=== PATIENT | female | born 1975 | race Caucasian/White ===

== ENCOUNTER 2020-05-23 22:06 | Emergency (ER) | payer OTHER ==
[~2020-05-23] VITALS: Ht 167.6 cm; Wt 79.3 kg
[2020-05-23 22:10] VITALS: BP 155/95
--- NOTE | 2020-05-23 22:11 | PHYS DOC ---
Past History Past Medical History: Anxiety Adult General HPI HPI Patient is a 44-year-old female here for anxiety. This is a chronic problem, has been on Lexapro on and off since 2011. Recently restarted this due to increased social stressors and increased frequency of panic attacks. 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 Patient reports having increased frequency of panic attacks past 48 hours that have been disturbing her activities of daily living and ability to sleep. She has no panic attack at present but is here to discuss other issues for as needed use for acute anxiety. She states she has had Xanax prescription in the past for as needed use in discussing prescription for this today Review of Systems Review of Systems Fourteen body systems of review of systems have been reviewed. See HPI for pertinent positives and negative responses, other almanza all other systems are negative, non-pertinent or non-contributory Physical Exam Physical Exam Constitutional: Well developed, well nourished, no acute distress, non-toxic appearance. HENT: Normocephalic, atraumatic, bilateral external ears normal, oropharynx moist, no oral exudates, nose normal. Eyes: PERRLA, EOMI, conjunctiva normal, no discharge. Neck: Normal range of motion, no tenderness, supple, no stridor. Cardiovascular: Heart rate regular per monitor Lungs & Thorax: No respiratory distress or accessory muscle use, bilateral chest rise Abdomen: Abdomen soft, non-tender, bowel sounds present in all quadrants, no guarding or rebound, nonacute abdomen. Skin: Warm, dry, no erythema, no rash. Back: No tenderness, no CVA tenderness. Extremities: No tenderness, no cyanosis, no clubbing, ROM intact, no edema. Neurologic: Alert and oriented X 3, grossly normal motor & sensory function, no focal deficits noted. Psychologic: Affect normal, judgement normal, mood normal. Current Patient Data Vital Signs Vital Signs Date Time Temp Pulse Resp B/P (MAP) Pulse Ox O2 Delivery O2 Flow Rate FiO2 05/23/20 22:10 98.1 96 16 155/95 (115) 99 Room Air EKG EKG [] Radiology/Procedures Radiology/Procedures [] Heart Score Risk Factors: Risk Factors: DM, Current or recent (<one month) smoker, HTN, HLP, family history of CAD, obesity. Risk Scores: Risk Factors: DM, Current or recent (<one month) smoker, HTN, HLP, family history of CAD, obesity. Course & Med Decision Making Course & Med Decision Making Discussed with patient nature of anxiety and need to be on SSRI. I advised against prescribing Xanax or other benzodiazepine use for as needed use, she needs to discuss this utility with her primary care physician. I discussed utility of utilizing Vistaril as needed for panic attacks. I stated goal standard of treatment is outpatient therapy in conjunction with SSRI. Patient asymptomatic and hemodynamically stable, is anxious but has no other symptoms reported today. Strict return precautions were also discussed at length with good understanding by patient. Patient voiced understanding and agreement with the plan. Dragon Disclaimer Dragon Disclaimer This electronic medical record was generated, in whole or in part, using a voice recognition dictation system. Departure Departure: Impression: Primary Impression: Anxiety Disposition: 01 DC HOME SELF CARE/HOMELESS Condition: STABLE Referrals: DEJA INMAN MD (PCP) Patient Instructions: Anxiety and Panic Attacks Additional Instructions: You were seen in the ED for evaluation of anxiety. Anxiety is a serious medical condition with unfortunate effects on daily living. You should utilize the Behavior Health resources for further management of your symptoms. As disc ussed, please use the prescribed Vistaril medication for as needed use during acute anxiety/panic attacks. Please discuss utility of this going forward with your primary care physician until your SSRI which is gold standard for your condition takes full effect. If any concerning signs or symptoms present prior to outpatient follow-up please do not hesitate to come back for repeat evaluation Scripts Hydroxyzine Pamoate (VISTARIL) 50 Mg Capsule 1 CAP PO TID for anxiety, #30 CAP 2 Refills Prov: KALI MONTEZ DO 05/23/20 KALI MONTEZ DO May 23, 2020 22:11
[2020-05-23] MEDS ORDERED: HYDR50CA PO (22:50)
[2020-05-23] MEDS ORDERED: hydrOXYzine HCL 25 MG TABLET ONE ×2 (22:58→23:03)
[2020-05-23] MEDS ORDERED: hydrOXYzine PAMOATE 25 MG CAPSULE PO PRN (23:00)
[2020-05-24] MEDS ORDERED: LORA-254 PO (02:52)
== END 2020-05-23 23:06 | disposition home or self-care (01) ==
LOC: ER 22:06
DX: F41.9 Anxiety disorder, unspecified (principal)
CPT/HCPCS: 99284; Q0177

== ENCOUNTER 2020-05-24 01:55 | Emergency (ER) | payer OTHER ==
[~2020-05-24] VITALS: Ht 167.6 cm; Wt 79.3 kg
[~2020-05-24 01:55] MED LIST: HYDR50CA PO
--- NOTE | 2020-05-24 02:03 | PHYS DOC ---
Past History Past Medical History: Anxiety Past Surgical History: No Surgical History Alcohol Use: None Adult General HPI HPI Patient is a 44-year-old female who was recently discharged from our facility less than 3 hours ago for anxiety. She has longstanding history of anxiety and increased frequency of panic attacks. She has been on SSRI on and off since 2011. Recently restarted this medication due to increased social stress. Patient has outpatient PCP follow-up this upcoming Monday to discuss ongoing swan ic attacks and inability to perform activities of daily living. She presented earlier this evening requesting Xanax for as needed anxiety, this request was denied and in turn patient was given Vistaril prescription. Patient reportedly took x1 25 mg p.o. Vistaril and reported worsened anxiety, flushing, and subsequently started having a panic attack prompting her to come back for repeat evaluation and request for Xanax Review of Systems Review of Systems Fourteen body systems of review of systems have been reviewed. See HPI for pertinent positives and negative responses, other almanza all other systems are negative, non-pertinent or non-contributory Allergies Allergies Allergies Coded Allergies Type Severity Reaction Last Updated Verified No Known Drug Allergies 05/23/20 No Physical Exam Physical Exam Constitutional: Well developed, well nourished, no acute distress, non-toxic appearance. HENT: Normocephalic, atraumatic, bilateral external ears normal, oropharynx moist, no oral exudates, nose normal. Eyes: PERRLA, EOMI, conjunctiva normal, no discharge. Neck: Normal range of motion, no tenderness, supple, no stridor. Cardiovascular: Heart rate regular per monitor Lungs & Thorax: No respiratory distress or accessory muscle use, bilateral chest rise Abdomen: Abdomen soft, non-tender, bowel sounds present in all quadrants, no guarding or rebound, nonacute abdomen. Skin: Warm, dry, no erythema, no rash. Back: No tenderness, no CVA tenderness. Extremities: No tenderness, no cyanosis, no clubbing, ROM intact, no edema. Neurologic: Alert and oriented X 3, grossly normal motor & sensory function, no focal deficits noted. Psychologic: Affect normal, judgement normal, mood normal. EKG EKG [] Radiology/Procedures Radiology/Procedures [] Heart Score HEART Score for Chest Pain: HEART Score for Chest Pain Response (Comments) Value History Slighlty/Non-Suspicious 0 Age < 45 0 Risk Factors 1 or 2 Risk Factors 1 Total 1 Risk Factors: Risk Factors: DM, Current or recent (<one month) smoker, HTN, HLP, family history of CAD, obesity. Risk Scores: Risk Factors: DM, Current or recent (<one month) smoker, HTN, HLP, family history of CAD, obesity. Course & Med Decision Making Course & Med Decision Making Denied patient's request for Xanax at this visit Patient given 1 mg p.o. Ativan with significant relief in symptomology, patient reports "I feel much better". Was found sleeping upon repeat examination in no acute distress, stated " this is the first sleep I have had since May 08 when my panic attacks really started worsening" Joint decision to discharge home with extremely limited prescription for Ativan for as needed use for acute anxiety/panic attacks. I educated patient on risks and benefits of excepting benzodiazepine medication. I advised her against long-term use and stressed need to discuss with her primary care physician alternative ways for addressing her anxiety in outpatient setting. Strict return precautions were discussed with good understanding by patient, all questions and concerns addressed prior to your departure in improved condition Dragon Disclaimer Dragon Disclaimer This electronic medical record was generated, in whole or in part, using a voice recognition dictation system. Departure Departure: Impression: Primary Impression: Anxiety Disposition: 01 DC HOME SELF CARE/HOMELESS Condition: IMPROVED Referrals: DEJA INMAN MD (PCP) Additional Instructions: You were seen in the ED for evaluation of anxiety. Anxiety is a serious medical condition with unfortunate effects on daily living. You are educated extensively on prescribed Ativan medication today. This is not supposed to be used for long-term use given numerous risks that were discussed at length. Please follow-up with your primary care physician as scheduled in 24 hours to review your anxiety and ongoing panic attacks. Then he can concerning symptoms arise prior to outpatient follow-up please do not hesitate to come back for repeat evaluation It was a pleasure to take care of you and I wish you the best going forward Scripts Lorazepam (ATIVAN) 1 Mg Tablet 1 TAB PO DAILY for anxiety MDD 2 Tablet(s) for 3 Days, #3 TAB 0 Refills Prov: KALI MONTEZ DO 05/24/20 KALI MONTEZ DO May 24, 2020 02:03
[2020-05-24] MEDS ORDERED: LORazepam 1 MG TABLET PO ONE (02:30)
[2020-05-24] MEDS ORDERED: LORA-254 PO (02:52)
[2020-05-24 02:55] VITALS: BP 140/83
== END 2020-05-24 03:00 | disposition home or self-care (01) ==
LOC: ER 01:55
DX: F41.9 Anxiety disorder, unspecified (principal)
CPT/HCPCS: 99284